=== PATIENT | female | born 1965 | race Caucasian/White ===

== ENCOUNTER 2022-01-18 15:00 | Outpatient (RCR) | payer OTHER | END 2022-01-19 | LOC: PT 15:00 | PROVIDERS: ATTEND Physician Assistant | DX: M75.42 Impingement syndrome of left shoulder (principal) ==

== ENCOUNTER 2022-01-25 14:56 | Outpatient (RCR) | payer OTHER | END 2022-02-19 | LOC: PT 14:56 | PROVIDERS: ATTEND Physician Assistant | DX: M75.42 Impingement syndrome of left shoulder (principal) ==